=== PATIENT | female | born 1980 | race Caucasian/White ===

== ENCOUNTER 2016-12-29 01:36 | Emergency (ER) | payer OTHER ==
[2016-12-29] MEDS ORDERED: EPINEPHRINE INJ/PF 1 MG/1 ML AMPULE ONE (01:54)
[2016-12-29] MEDS ORDERED: DIPHENHYDRAMINE HCL 50 MG/ML VIAL ONE (01:55)
[2016-12-29] MEDS ORDERED: METHYLPREDNISOLONE INJ 125 MG/2 ML SDV ONE (01:56)
[2016-12-29] MEDS ORDERED: FAMOTIDINE INJ/PF 20 MG/2 ML SDV IV ONE ×2 (01:56→02:21)
--- NOTE | 2016-12-29 02:13 | ER Document Report ---
ED General - General Chief Complaint: Allergic Reaction Stated Complaint: POSSIBLE ALLERGIC REACTION Time Seen by Provider: 12/29/16 02:12 Notes: Patient is a 35 year old female without past medical history who presents after being bitten by fire ants on her bilateral lower extremities and subsequently developing diffuse urticaria, facial swelling, and difficulty breathing. States her symptoms started approximately 45 minutes after being bitten. She states she became concerned when she had increasing facial swelling and began to have difficulty breathing. She has never had this extreme of a reaction in the past. She came directly to the emergency department due to the severity of her symptoms. She has not had any syncope, vomiting, diarrhea or abdominal pain. She did take Benadryl at home without any relief. She did not know setting seem to worsen her symptoms. TRAVEL OUTSIDE OF THE [place] IN LAST 30 DAYS: No - Related Data Allergies/Adverse Reactions: pineapple [Pineapple] Allergy (Verified 12/29/16 01:45) sumatriptan [From Imitrex] Allergy (Verified 12/29/16 01:45) sumatriptan succinate [From Imitrex] Allergy (Verified 12/29/16 01:45) Past Medical History - General Information source: Patient - Social History Smoking Status: Never Smoker Frequency of alcohol use: None Drug Abuse: None Lives with: Family Family History: Reviewed & Not Pertinent Neurological Medical History: Reports: Hx Migraine Renal/ Medical History: Denies: Hx Peritoneal Dialysis Musculoskeltal Medical History: Reports Hx Musculoskeletal Deformity, Reports Hx Musculoskeletal Trauma Surgical Hx: Negative - Immunizations Hx Diphtheria, Pertussis, Tetanus Vaccination: Yes Review of Systems - Review of Systems Notes: Constitutional: Negative for fever. HENT: Negative for sore throat. Eyes: Positive for swelling around the eyes Cardiovascular: Negative for chest pain. Respiratory: Negative for shortness of breath. Gastrointestinal: Negative for abdominal pain, vomiting or diarrhea. Genitourinary: Negative for dysuria. Musculoskeletal: Negative for back pain. Skin: Positive for urticaria Neurological: Negative for headaches, weakness or numbness. 10 point ROS negative except as marked above and in HPI. Physical Exam - Vital signs Vitals: Temp Pulse Resp BP Pulse Ox 98.3 F 107 H 22 H 128/80 H 100 12/29/16 01:45 12/29/16 01:45 12/29/16 01:45 12/29/16 01:45 12/29/16 01:45 Interpretation: Tachycardic Notes: PHYSICAL EXAMINATION: GENERAL: Appears uncomfortable, in moderate distress HEAD: Atraumatic, normocephalic. EYES: Pupils equal round and reactive to light, extraocular movements intact, sclera anicteric, mild scleral injection ENT: nares patent, oropharynx clear without exudates. Mild lip edema. Diffuse facial swelling, eyes are almost swollen shut. The ears are both swollen and erythematous bilaterally. NECK: Normal range of motion, supple without lymphadenopathy LUNGS: Breath sounds clear to auscultation bilaterally and equal. No wheezes rales or rhonchi. HEART: Regular tachycardia without murmurs ABDOMEN: Soft, nontender, normoactive bowel sounds. No guarding, no rebound. No masses appreciated. EXTREMITIES: Normal range of motion, no pitting or edema. No cyanosis. NEUROLOGICAL: No focal neurological deficits. Moves all extremities spontaneously and on command. PSYCH: Mildly anxious SKIN: Warm, Dry, normal turgor, no rashes or lesions noted. Course - Re-evaluation Re-evalutation: 12/29/16 02:00 Patient presents with signs and symptoms concerning for acute anaphylaxis. Patient had diffuse urticaria, facial swelling, mild tongue edema and complaints of shortness of breath. She was tachycardic on presentation. Source appears to be fire ants. Patient was medially brought back to resuscitation bay given her facial and airway involvement. 0.5 mg of IM epinephrine was immediately administered. An IV was established and IV Solu- Medrol, Benadryl and famotidine were administered. She is in place on electronic device monitor. She is critically ill given her anaphylactic state and will be monitored closely. 12/29/16 02:34 Patient did have some clinical improvement after the initial dose but remained with facial edema and mild shortness of breath. A second dose of 0.5 mg epinephrine has been administered. At this reassessment, patient is now without any facial swelling or edema. Her urticaria have resolved. She remains with mild pruritus in her bilateral lower extremity's where she was bitten by the fire ants. Will continue to monitor. 12/29/16 03:11 Patient has now had complete resolution of all urticaria, facial edema and swelling. Tachycardia has resolved. Will continue to monitor. 12/29/16 03:43 Patient continues to be without any further facial swelling, urticaria, now completely asymptomatic. Vitals remain within normal limits. Will continue to monitor 12/29/16 04:18 Patient continues to be stable, vitals within normal limits, no urticaria. Will discharge with an epinephrine prescription. Will discharge with return precautions and follow-up recommendations. Verbal discharge instructions given a the bedside and opportunity for questions given. Medication warnings reviewed. Patient is in agreement with this plan and has verbalized understanding of return precautions and the need for primary care follow-up in the next 24-72 hours. - Vital Signs Vital signs: Temp Pulse Resp BP Pulse Ox 98.3 F 107 H 18 132/76 H 98 12/29/16 01:45 12/29/16 01:45 12/29/16 04:01 12/29/16 04:01 12/29/16 04:01 Critical Care Note - Critical Care Note Total time excluding time spent on procedures (mins): 37 Comments: Critical care time spent obtaining history from patient or surrogate, discussions with consultants, development of treatment plan with patient or surrogate, evaluation of patient's response to treatment, examination of patient , ordering and performing treatments and interventions, ordering and review of laboratory studies, re-evaluation of patient's condition, ordering and review of radiographic studies and review of old charts Discharge - Discharge Clinical Impression: Anaphylaxis Qualifiers: Encounter type: initial encounter Qualified Code(s): T78.2XXA - Anaphylactic shock, unspecified, initial encounter Condition: Good Disposition: HOME, SELF-CARE Additional Instructions: IF YOU DEVELOP DIFFICULTY BREATHING, RETURN OF HIVES, VOMITING, LIGHTHEADEDNESS , GIVE YOURSELF THE EPINEPHRINE SHOT IMMEDIATELY AND CALL 911. NEVER HESITATE TO GIVE YOURSELF THE EPINEPHRINE THIS CAN SAVE YOUR LIFE IF YOU ARE HAVE A SERIOUS ALLERGIC REACTION. Please also follow-up with your primary care doctor for consideration of allergy testing. Prescriptions: Epinephrine [Epipen 2-Rob] 0.3 mg IM ONCE PRN #1 packet PRN Reason: Referrals: SANTI AMAYA, [Primary Care Provider] - Follow up as needed
[2016-12-29] MEDS ORDERED: EPINEPHRINE INJ/PF 1 MG/1 ML AMPULE IM ONE ×2 (02:21→02:33)
[2016-12-29] MEDS ORDERED: METHYLPREDNISOLONE INJ 125 MG/2 ML SDV IV ONE (02:21)
[2016-12-29] MEDS ORDERED: DIPHENHYDRAMINE HCL 50 MG/ML VIAL IV ONE ×2 (02:21→02:34)
[2016-12-29 04:39] VITALS: BP 135/82
== END 2016-12-29 04:47 | disposition home or self-care (01) ==
LOC: ER 01:36
DX: T63.421A Toxic effect of venom of ants, accidental (unintentional), initial encounter (principal); T78.2XXA Anaphylactic shock, unspecified, initial encounter
CPT/HCPCS: 99284; 96372; 96374; 96375; J1200; J0171; J2930; S0028